=== PATIENT | female | born 1965 | race Caucasian/White ===

== ENCOUNTER 2017-04-11 02:59 | Emergency (ER) | payer OTHER, BC ==
[2017-04-11] MEDS ORDERED: ISOVUE-370 76% 100ML VIAL (Q9967) As Ordered (03:26)
[2017-04-11 03:37] LABS: BASO % 0.4 % (0.0-1.0); EOS # 0.1 10^3/uL (0.0-0.50); EOS % 1.3 % (0.0-3.0); HEMATOCRIT 40.1 % (36.0-47.0); HEMOGLOBIN 14.3 g/dl (12.0-16.0); IMMATURE GRANULOCYTE % 0.5 % (0-3.0); LYMPH # 2.1 10^3/uL (1.5-4.5); MEAN CORPUSCULAR HEMOGLOBIN 29.4 pg (27.0-33.0); MEAN CORPUSCULAR HGB CONC 35.7 g/dl (32.0-36.5); MEAN CORPUSCULAR VOLUME 82.3 fl (80.0-96.0); MONO # 0.6 10^3/uL (0.0-0.8); MONO % 6.6 % (0.0-5.0); NEUTROPHILS # 5.7 10^3/uL (1.8-7.7); NEUTROPHILS % 67.2 % (36.0-66.0); PLATELET COUNT, AUTOMATED 228 10^3/uL (150-450); RED BLOOD COUNT 4.87 10^6/uL (4.00-5.40); RED CELL DISTRIBUTION WIDTH 12.3 % (11.5-14.5); WHITE BLOOD COUNT 8.5 10^3/uL (4.0-10.0)
[2017-04-11] MEDS: NS 500 ML IV (03:46)
[2017-04-11 04:27] LABS: ANION GAP 11 MEQ/L (8-16); BLOOD UREA NITROGEN 13 MG/DL (7-18); CALCIUM LEVEL 8.6 MG/DL (8.5-10.1); CARBON DIOXIDE LEVEL 25 MEQ/L (21-32); CHLORIDE LEVEL 110 MEQ/L (98-107); CK-MB VALUE MASS 1.6 NG/ML (0.0-3.6); CPK CREATINE PHOSPHOKINASE 114 U/L (26-192); CREATININE FOR GFR 1.08 MG/DL (0.55-1.30); ETHYL ALCOHOL (ETHANOL) 0.171 % (0.000-0.010); GLOMERULAR FILTRATION RATE 57.4 (>58); GLUCOSE, FASTING 115 MG/DL (70-100); POTASSIUM SERUM 3.8 MEQ/L (3.5-5.1); SODIUM LEVEL 146 MEQ/L (136-145); TROPONIN I < 0.02 NG/ML (< 0.10)
[2017-04-11] MEDS: ACETAMINOPHEN TAB 650MG DOSE (2X325MG) PO (06:48)
== END 2017-04-11 06:58 | disposition home or self-care (01) ==
LOC: M ED 02:59
DX: S20.311A Abrasion of right front wall of thorax, initial encounter (principal); S20.312A Abrasion of left front wall of thorax, initial encounter; V47.5XXA Car driver injured in collision with fixed or stationary object in traffic accident, initial encounter; Y92.410 Unspecified street and highway as the place of occurrence of the external cause
CPT/HCPCS: Q9967

== ENCOUNTER → 2019-02-15 | Outpatient (POV) | payer BC ==
[~2019-02-15] VITALS: Ht 165.1 cm; Wt 75.9 kg
[~2019-02-15] MED LIST: BUPR150T3 PO; PANT40TA3 PO; XANA0.5T PO
[2019-02-15 11:51] VITALS: BP 142/89
--- NOTE | 2019-02-15 12:02 | GIPN ---
[facility] GI Progress Note GI Progress Note DATE: Feb 15, 2019 Primary physician/ referring physician: Anni Taylor. Reason for consult: Abnormal liver panel and Abdominal pain. HPI: 53-year-old female patient with IBS ( following at [place], had colonoscopy x 2 in past), was recently seen in [facility] for complaints of nausea, vomiting, abdominal pain for a few weeks and noted with abnormal liver panel. Patient reports her symptoms started in November around the [place] [facility] had a trip to [place], when she had heavy alcohol use. Patient reported her symptoms started with persistent epigastric abdominal pain and nausea and recurrent vomiting. Patient had similar bouts since then, around 4 such episodes with last episode being very severe and she came to [facility] ER. Patient reported having multiple episodes of vomiting and upper abdominal pain and thinks she may have had some blood in the vomit. Patient also reported having IBS with constipation predo minant symptoms and she was given linzess, but not using it regularly. Patient denies taking any herbal supplements, OTC medication or recent antibiotic use, no loss of consciousness/ syncope.. Patient had EGD during hospitalization for history of hematemesis - noted some gastritis and duodenitis ( detailed report in [facility]). Follow up 02/15/2019: Today patient is folloing for review of results and symptoms. Patient reports not feeling any abdominal pain at rest but still gets mild to moderate intensity right upper quadrant and epigastric abdominal pain with food intake, and associated with bloating and gassy sensation. Patient also has persistent constipation with bowel movements only on the days when she takes linzess. Patient denies any hard stools. 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 Pertinent negative GI symptoms: Patient denies fever, diarrhea, unintentional weight loss. No history of melena or hematochezia. Prior work up and follow up: -- 210- EGD -- Done on 01/31/2019: noted gastritis and duodenitis, pathology negative for H. pylori. -- US abdomen 01/2019: showed steatosis. -- CT abdomen 01/2019: Hepatic steatosis. Mild wall thickening noted of the gastric antrum may reflect gastritis. Dilated air containing sigmoid colon most consistent with focal ileus. Intra-abdominal adhesions or internal hernia considered less likely. See above comments. Small sliding hiatal hernia. -- MRCP: 01/2019: no evidence of intrahepatic or extrahepatic biliary ductal dilation. There is a focus of mild wall thickening in the gallbladderfundus. No filling defect is seen within the lumen of the gallbladder. Common bile duct is not dilated, measuring 5 mm Review of Systems: GI: as stated above CVS: No chest pain, No palpitations, No leg swelling. RS: No Shortness of breath, No Wheezing, no cough FISCAL AGENT: No dizziness, No motor weakness, No sensory problems Hematology: No bruising, No gum bleeding, Musculoskeletal: No joint pain, ambulating well. Skin: No rash : No hematuria, No burning sensation of the urine ENT: No ear discharge/ pain, No dysphagia. Eyes: No photophobia. Jaundice Home medications: reviewed. Antithrombotic agents - None Medical h/o: As above. Surgical h/o: None on abdomen. Social h/o: Alcohol usually social but had heavy alcohol use during her trip prior to hospitalization, but no further alcohol use since her hospitalization. smoking -- denies , IVDA/ drugs-- denies . Family h/o of GI cancers - None Prior Endoscopies: --- EGD around 20 years ago[place]- normal as per patient. -- EGD in [facility] in 02/01/2019: showed gastritis and duodenitis. --- Colonoscopy x 2 in [place] as per patient- normal. Prior GI evaluations: follows with GI in [place]. Exam: Vitals: reviewed General: Alert and oriented x 3, not in distress HEENT: NO pallor, no icterus. Normal oropharynx, NO cervical lymph nodes. Chest: symmetric with bilateral clear air entry, CVS: S1, S2 heard, normal, no murmurs . Abdomen: non-distended, no surgical scars, soft, mild tenderness in epigastric and right upper quadrant area.,, no palpable masses, normal bowel sounds heard. Rectal exam: Patient refused.. Extremities: no pedal edema, pulses palpable. FISCAL AGENT: no focal motor or sensory deficits. Moves all extremities Skin: no rash. Labs: reviewed.. Imaging: reviewed. Impression: - Abnormal liver panel and abdominal pain with prior symptoms of nausea and vomiting bouts, following travel and alcohol use in past, -- DDx -- likely alcohol liver disease vs Passed CBD stone vs non-specific viral Gastroenteritis. - Constipation predominant IBS with abdominal bloating. Recommendations: - Patient educated about the test results, possible differential diagnoses and All questions answered. - Will obtain repeat liver panel with HSV antibodies, GGT and LDH levels. - Patient is educated to completely avoid hepatotoxic medications and strictly avoid alcohol for now. - Will continue the omeprazole/ pantoprazole for now - to take fitness sales consultant on empty stomach. - Will add colace along with senna -- to be taken daily and if that does not work to take linzess ( dose as per the symptoms). - Will obtain repeat abdominal ultrasound with Doppler and also Bilateral lower extremities doppler due to pedal edema. - Based on the repeat labs and clinical symptoms, might require liver biopsy in future. Discussed about the liver biopsy, its indications, risks and benefits. - Patient is educated to monitor for jaundice, and if any worsening of symptoms to come to ER or call Gi clinic @ [phone]. - Follow up with PCP for routine medical care and other age appropriate health maintenance. Plan of care discussed with patient. Patient verbalized understanding and agreed with the plan. Allergies Coded Allergies: No Known Allergies (Unverified , 09/13/15) Current Medications Medications and Radiology test ordered in [id number] system. JEMMA RICHMOND MD Feb 15, 2019 12:02
== END ==
LOC: M GI 11:47
PROVIDERS: ATTEND Internal Medicine Gastroenterology
DX: R10.13 Epigastric pain (principal); R10.11 Right upper quadrant pain; R94.5 Abnormal results of liver function studies; R11.2 Nausea with vomiting, unspecified; K58.9 Irritable bowel syndrome, unspecified; Z79.899 Other long term (current) drug therapy

== ENCOUNTER → 2019-02-15 | Outpatient (CLI) | payer BC ==
[2019-02-15 13:05] LABS: BASO % 0.5 % (0.0-1.0); EOS # 0.1 10^3/uL (0.0-0.5); EOS % 1.2 % (0.0-3.0); HEMOGLOBIN 14.6 g/dl (12.0-15.5); LYMPH % 27.5 % (24.0-44.0); MEAN CORPUSCULAR HEMOGLOBIN 29.5 pg (27.0-33.0); MEAN CORPUSCULAR VOLUME 86.9 fl (80.0-96.0); MONO # 0.7 10^3/uL (0.0-0.8); NEUTROPHILS # 4.4 10^3/uL (1.5-8.5); NEUTROPHILS % 60.7 % (36.0-66.0); PLATELET COUNT, AUTOMATED 192 10^3/uL (150-450); RED BLOOD COUNT 4.95 10^6/uL (4.00-5.40); WHITE BLOOD COUNT 7.3 10^3/uL (4.0-10.0)
[2019-02-15 13:17] LABS: INR 1.25; PROTHROMBIN TIME 15.4 SECONDS (11.8-14.0)
[2019-02-15 13:18] LABS: PARTIAL THROMBOPLASTIN TIME 32.7 SECONDS (25.0-38.4)
[2019-02-15 13:20] LABS: ALBUMIN 3.4 GM/DL (3.2-5.2); ALT/SGPT 362 U/L (12-78); BILIRUBIN,DIRECT 0.9 MG/DL (0.0-0.2); BILIRUBIN,TOTAL 1.8 MG/DL (0.2-1.0); BLOOD UREA NITROGEN 13 MG/DL (7-18); CPK CREATINE PHOSPHOKINASE 108 U/L (26-192); CREATININE FOR GFR 1.15 MG/DL (0.55-1.30); LDH LACTATE DEHYDROGENASE 295 U/L (84-246)
[2019-02-18 11:04] LABS: HEPATITIS B SURFACE ANTIBODY NEGATIVE (POSITIVE)
== END ==
LOC: M LAB 12:26
PROVIDERS: ATTEND Internal Medicine Gastroenterology
DX: R94.5 Abnormal results of liver function studies (principal); R10.13 Epigastric pain

== ENCOUNTER → 2019-03-03 | Outpatient (CLI) | payer BC ==
--- NOTE | 2019-03-04 03:41 | REP ---
Clinical: Abnormal liver function tests. Technique: Real time oh scale and color Doppler evaluation using curved array transducer. Findings: Liver demonstrates mildly increased echogenicity suggesting fatty infiltration without focal hepatic lesion identified. The pancreas is incompletely evaluated due to interposed bowel gas but visualized portions appear normal. Spleen is unremarkable. The gallbladder demonstrates small 3.6 mm posterior wall polyp without gallstones, wall thickening, or pericholecystic fluid. No biliary ductal dilatation is appreciated and the common bile duct measures 4.5 mm diameter. The bilateral kidneys are normal in reniform shape and echogenicity without hydronephrosis. Right kidney measures 10.4 x 3.9 x 5.3 cm. Left kidney measures 10.0 x 4.9 x 6.4 cm. Abdominal aorta is normal and measures 2.6 cm maximal diameter. No ascites. Doppler interrogation demonstrates normal wave patterns, flow direction, and velocities to the portal and hepatic veins. Main portal vein: 32 cm/sec Intrahepatic portal veins: 13 - 17 cm/sec Splenic vein at the hilum: 18 cm/sec Impression: 1. Mild hepatic steatosis without focal hepatic lesion. 2. Small gallbladder polyp. Electronically Signed by Florentino Barry MD 03/04/2019 03:32 A
== END ==
LOC: M RAD 07:34
PROVIDERS: ATTEND Internal Medicine Gastroenterology
DX: R94.5 Abnormal results of liver function studies (principal); R10.13 Epigastric pain; R10.11 Right upper quadrant pain; K76.0 Fatty (change of) liver, not elsewhere classified; K82.4 Cholesterolosis of gallbladder

== ENCOUNTER → 2019-04-26 | Outpatient (REF) | payer BC ==
[2019-04-26 16:00] LABS: BASO % 0.4 % (0.0-1.0); EOS # 0.1 10^3/uL (0.0-0.5); EOS % 0.9 % (0.0-3.0); HEMATOCRIT 38.6 % (36.0-47.0); HEMOGLOBIN 13.8 g/dl (12.0-15.5); LYMPH # 2.3 10^3/uL (1.5-5.0); LYMPH % 30.8 % (24.0-44.0); MEAN CORPUSCULAR HEMOGLOBIN 30.3 pg (27.0-33.0); MEAN CORPUSCULAR HGB CONC 35.8 g/dl (32.0-36.5); MEAN CORPUSCULAR VOLUME 84.8 fl (80.0-96.0); MONO # 0.7 10^3/uL (0.0-0.8); MONO % 9.3 % (0.0-5.0); NEUTROPHILS # 4.3 10^3/uL (1.5-8.5); NEUTROPHILS % 58.3 % (36.0-66.0); PLATELET COUNT, AUTOMATED 213 10^3/uL (150-450); RED BLOOD COUNT 4.55 10^6/uL (4.00-5.40); WHITE BLOOD COUNT 7.4 10^3/uL (4.0-10.0)
[2019-04-26 16:16] LABS: ALBUMIN 3.3 GM/DL (3.2-5.2); BILIRUBIN,DIRECT 0.3 MG/DL (0.0-0.2); BILIRUBIN,TOTAL 0.8 MG/DL (0.2-1.0)
[2019-04-26 16:21] LABS: INR 1.1; PROTHROMBIN TIME 13.9 SECONDS (11.8-14.0)
[2019-04-26 16:22] LABS: PARTIAL THROMBOPLASTIN TIME 31.2 SECONDS (25.0-38.4)
== END ==
LOC: M LABDRWAD 15:15
PROVIDERS: ATTEND Internal Medicine Gastroenterology
DX: R94.5 Abnormal results of liver function studies (principal)

== ENCOUNTER → 2019-05-30 | Outpatient (CLI) | payer BC ==
--- NOTE | 2019-05-30 11:08 | REP ---
REASON FOR EXAM: Epigastric pain. There are no priors for comparison. After the intravenous administration of 6.6 millicuries of technetium 99m Choletec hepatobiliary imaging was performed with gallbladder ejection fraction calculation. There is symmetric distribution of the radiotracer throughout the hepatocytes. The gallbladder is promptly visualized at 10 minutes. The small bowel is promptly visualized at 30 minutes. The gallbladder ejection fraction calculation is 97%. IMPRESSION: Normal exam. Electronically Signed by Royce Lomas DO 05/30/2019 11:49 A
== END ==
LOC: M RAD 07:29
PROVIDERS: ATTEND Internal Medicine Gastroenterology
DX: R10.13 Epigastric pain (principal)
CPT/HCPCS: 78227; A9537

== ENCOUNTER → 2019-06-06 | Outpatient (CLI) | payer BC ==
[~2019-06-06] MED LIST changes: +E-Z-GAS II EFFERVESCENT PACKET (SODIUM BICARB./CITRIC ACID/SIMETHICONE) As Ordered ONE; +E-Z-HD 98% w/w 340GM SUSP BTL As Ordered ONE; +E-Z-PAQUE 96% w/w SUSP 176GM BTL As Ordered ONE
--- NOTE | 2019-06-06 19:53 | REP ---
UPPER GI AIR CONTRAST AND SMALL BOWEL FOLLOW THROUGH The procedure was performed under the direct supervision of Dr. Rios. The images were reviewed with Dr. Rios The enamel pulverizer film shows no organomegaly or pathological masses. The intestinal gas pattern is non-specific. Liquid barium and gas producing crystals were given in the erect position as well as liquid barium in the prone oblique position in order to perform a double contrast upper GI examination. Additionally liquid barium was given at the end of the examination in order to perform a small bowel follow through. The oral and pharyngeal stages of deglutition are unremarkable. Esophageal transport is prompt and efficient and there is no esophagitis, stricture, mucosal ring or hiatal hernia. Gastroesophageal reflux is not demonstrated on this examination. The stomach nelson are normally outlined . The rugal folds are smooth and regular. There is no gastritis neoplasm or ulcer disease. In the duodenum there are thickened folds which may represent duodenitis. There is no jeaneth ulcer identified. The visualized portion of the proximal small bowel appears normal in course and caliber. The barium column was followed through the small bowel to the level of the terminal ileum. Small bowel transit time is approximately 90 minutes in . During fluoroscopy gentle palpation shows all loops are freely movable and pliable. There are no fixed or angulated loops. The small bowel mucosal pattern is normal in course and caliber. There is no transition to suggest a partial small-bowel obstruction. Spot filming of the terminal ileum shows it to be unremarkable. Impression: In the duodenum there are thickened folds which may represent duodenitis. There are is no jeaneth ulcer identified. Otherwise, unremarkable double contrast upper GI and small bowel follow through examination. 3.3 minutes of fluoro time was utilized for this procedure. Electronically Signed by BECKI Dunbar 06/06/2019 03:40 P Electronically Signed by Benson Rios MD 06/06/2019 07:44 P
== END ==
LOC: M RAD 08:09
PROVIDERS: ATTEND Internal Medicine Gastroenterology
DX: R10.13 Epigastric pain (principal)

== ENCOUNTER → 2019-06-14 | Outpatient (CLI) | payer BC ==
[~2019-06-14] MED LIST changes: -E-Z-GAS II EFFERVESCENT PACKET (SODIUM BICARB./CITRIC ACID/SIMETHICONE) As Ordered ONE; -E-Z-HD 98% w/w 340GM SUSP BTL As Ordered ONE; -E-Z-PAQUE 96% w/w SUSP 176GM BTL As Ordered ONE
--- NOTE | 2019-06-15 04:56 | REP ---
Low: Chronic venous hypertension. Technique: Real time oh scale and color Doppler evaluation using linear high frequency transducer with reflux evaluation. Findings: Bilateral lower extremities demonstrate normal compressibility, flow, and wave patterns in response to respiration and augmentation without evidence for deep venous thrombosis. Reflux evaluation demonstrates normal findings without evidence for reflux through the deep or superficial venous systems. Impression: Normal examination. No evidence for deep venous thrombosis or reflux disease. Electronically Signed by Florentino Barry MD 06/15/2019 04:48 A
--- NOTE | 2019-06-15 05:04 | REP ---
Clinical: Bilateral lower extremity pain and swelling along with suggestions for hypertension and venous insufficiency. Technique: Real time rios scale and color Doppler evaluation of the bilateral lower extremity arterial vasculature using linear high frequency transducer. Findings: Rios scale and color images demonstrate minimal age-related noncalcified intimal thickening/atheromatous changes without stenosis or occlusion. Doppler interrogation demonstrates normal triphasic arterial wave forms and velocities bilaterally. Peak systolic velocities (cm/sec) RIGHT LEFT ENRIQUETA 1.1 1.1 Common femoral artery 132.3 94.3 Profunda femoris 78.3 57.8 SFA (proximal) 85.3 75.8 SFA (mid) 74.1 94.5 SFA (distal) 73.5 91.9 Popliteal artery 47.5 43.7 [place] (prox.) 26.5 20.6 Tibioperoneal trunk 42.9 62.1 MELT HOUSE DRAG OPERATOR (prox.) 63.7 39.3 MELT HOUSE DRAG OPERATOR (distal) 66.3 43.2 [place] (distal) 33.3 51.1 Impression: Relatively age-appropriate examination. No evidence for stenosis or occlusion. Electronically Signed by Florentino Barry MD 06/15/2019 04:56 A
== END ==
LOC: M RAD 09:05
PROVIDERS: ATTEND Internal Medicine Gastroenterology
DX: I87.303 Chronic venous hypertension (idiopathic) without complications of bilateral lower extremity (principal)

== ENCOUNTER → 2019-12-06 | Outpatient (REF) | payer BC ==
[~2019-12-06] MED LIST changes: +PANT40TA29 PO; -PANT40TA3 PO
[2019-12-06 17:03] LABS: LIPASE 170 U/L (73-393)
[2019-12-06 17:35] LABS: H PYLORI QUALITATIVE IgG NEGATIVE (NEGATIVE)
== END ==
LOC: M LAB REF 16:13
PROVIDERS: ATTEND Nurse Practitioner Adult Health
DX: R10.9 Unspecified abdominal pain (principal)

== ENCOUNTER → 2020-02-29 | Outpatient (REF) | payer BC ==
[2020-03-02 16:08] LABS: C1 ESTER INHIB. NON FUNCTIONAL 31 mg/dL (21-39); C1 ESTERASE INHIB. FUNCTIONAL > 100 (.)
== END ==
LOC: M LABDRWAD 12:44
PROVIDERS: ATTEND Internal Medicine Gastroenterology
DX: R10.13 Epigastric pain (principal)

== ENCOUNTER → 2020-04-24 | Outpatient (REF) | payer BC ==
[~2020-04-24] MED LIST changes: +BUPR150T12 PO; -BUPR150T3 PO
[2020-04-24 18:11] LABS: PHOSPHORUS LEVEL 3.9 MG/DL (2.5-4.9)
[2020-04-24 18:19] LABS: TOTAL 25(OH) VITAMIN D 17.5 NG/ML (30.0-100.0)
== END ==
LOC: M SFHCRHEU 15:06
PROVIDERS: ATTEND Internal Medicine
DX: M79.10 Myalgia, unspecified site (principal)

== ENCOUNTER → 2020-05-08 | Outpatient (CLI) | payer BC ==
--- NOTE | 2020-05-09 11:48 | ECHO ---
DATE OF PROCEDURE: 05/08/2020 Age: 54 Gender: Female Height: 165 cm Weight: 86 kg REFERRING PHYSICIAN: Saundra Loomis MD. INDICATION: Lower extremity edema. MEASUREMENTS: IVS 0.8 cm LV 4.7 cm LVPW 0.9 cm LA 3.0 cm Aorta 2.4 cm RV 2.5 cm IVC 1.8 cm Mitral E wave velocity 87 A wave 45 E prime septal 12.4 E prime lateral 10.0 FINDINGS: This study is of very limited technical quality with poor visualization. Patient has breast implants that limited parasternal and apical views. The best quality were subcostal views. Patient is in sinus rhythm. Left ventricle is normal size. Overall probably normal LV systolic function based on limited views. I do not appreciate any definite segmental wall motion abnormalities. Limited views of the right ventricle also appears normal. Aortic valve is appearing grossly normal. Mitral and tricuspid valves were very poorly visualized. Pulmonic valve was not seen. No pericardial effusion is noted. Inferior vena cava is of normal size and appropriately collapses with inspiration suggestive of normal central venous pressure. Aortic root and aortic arch appear normal. Abdominal aorta was not well seen. Doppler interrogation reveals no significant aortic stenosis or insufficiency. There was no visualized mitral stenosis or insufficiency and tricuspid stenosis or insufficiency, but the images were of poor quality. Mitral inflow pattern and tissue Doppler imaging of mitral annulus revealed normal diastolic function. CONCLUSIONS: 1. Study is of rather poor technical quality with limited visualization. Underlying sinus rhythm. 2. Normal LV size with likely normal LV systolic and diastolic function. 3. No gross valvular disease but based on very limited views. 4. Likely normal central venous pressure. COMMENT: It seems less likely that peripheral edema would be of cardiac etiology based on this limited echocardiogram. [facility]
--- NOTE | 2020-05-09 13:31 | SLEEPHOME ---
DATE: 05/08/2020 ORDERED BY: Dr. Saundra Loomis Diagnostic home sleep testing was performed due to concern for the obstructive sleep apnea syndrome in this patient with a history of fatigue. For testing, a nocturnal T3 respiratory monitoring device was used. Continuous record was made of pulse, oxygen saturation, air flow, chest and abdominal strain, and body position. There was 9 hours and 59 minutes of data reviewed. There was 8 hours and 20 minutes marked as time in bed. During the interval marked time in bed, there were only 24 respiratory events identified of 10 seconds in duration or greater. The events were obstructive and seen in the supine posture. Baseline pulse rate 69. Pulse rate ranged 57-107. Baseline saturation 95%. Saturations fell to 90%. Testing was performed in both the supine and nonsupine positions. IMPRESSION: Normal diagnostic home sleep testing with mild respiratory patterning in the supine position. COMMENT: Typical features generally seen in patients with obstructive sleep apnea syndrome were not identified during this testing.
== END ==
LOC: M CARPUL 09:41
PROVIDERS: ATTEND Internal Medicine
DX: M79.89 Other specified soft tissue disorders (principal); R53.83 Other fatigue
CPT/HCPCS: 93306; G0399

== ENCOUNTER → 2020-05-18 | Outpatient (CLI) | payer BC ==
--- NOTE | 2020-05-18 13:20 | REP ---
INDICATION: JOINT PAIN. COMPARISON: Comparison right hand radiographs are from April 11, 2017.. TECHNIQUE: Bilateral hand series: 8 views, 4 on each side. FINDINGS: Four views of the each hand demonstrate overall normal mineralization. Joint spaces are preserved. No erosive changes seen. There are 2 tiny punctate periarticular calcifications at the DIP joint of the index finger on the left. There is similar periarticular calcification at the ulnar aspect of the DIP joint of the index finger on the right as well. Mild DIP joint spurring is seen of the right index finger. No other abnormality.. . IMPRESSION: Mild osteoarthritic changes at the DIP joints. No acute bony abnormality or erosive arthropathy seen.. <Electronically signed by Rod Mcdonough > 05/18/20 [id number]
--- NOTE | 2020-05-18 13:22 | REP ---
INDICATION: JOINT PAIN. COMPARISON: None. TECHNIQUE: Bilateral foot series: 8 views. FINDINGS: Four views of the each foot demonstrate overall normal mineralization. There is plantar calcaneal spurring bilaterally and Achilles calcaneal spurring is noted on the left. Os perineum are seen bilaterally. There is a small os naviculare on each side as well. Minimal 1st MTP joint spurring is present bilaterally. No erosive changes are seen.. No fracture or subluxation is seen. No opaque foreign body noted. 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 Heel spurs bilaterally. No acute bony abnormality. <Electronically signed by Rod Mcdonough > 05/18/20 [id number]
--- NOTE | 2020-05-18 13:56 | REP ---
INDICATION: JOINT PAIN COMPARISON: None. TECHNIQUE: There are four views of each ankle. FINDINGS: Right ankle: There is no fracture or dislocation. Mineralization and joint spaces are normal. There are no calcifications or foreign bodies. There is a calcaneal plantar spur. Left ankle: There is no fracture or dislocation. Mineralization and joint spaces are normal. There are no calcifications or foreign bodies. There is a calcaneal plantar spur. IMPRESSION: Bilateral calcaneal plantar spurs. Otherwise, negative right ankle and negative left ankle. <Electronically signed by Benson Whyte > 05/18/20 [id number]
== END ==
LOC: M ADAMS 10:55
PROVIDERS: ATTEND Internal Medicine
DX: M19.041 Primary osteoarthritis, right hand (principal); M19.042 Primary osteoarthritis, left hand; M25.50 Pain in unspecified joint; M19.071 Primary osteoarthritis, right ankle and foot; M19.072 Primary osteoarthritis, left ankle and foot; M77.31 Calcaneal spur, right foot; M77.32 Calcaneal spur, left foot

== ENCOUNTER → 2021-02-27 | Outpatient (CLI) | payer BC ==
[~2021-02-27] MED LIST changes: +PROHANCE 279.3MG/ML 15ML VIAL As Ordered ONE; +PROHANCE 279.3MG/ML 5ML VIAL As Ordered ONE
== END ==
LOC: M RAD 14:36
PROVIDERS: ATTEND Nurse Practitioner Adult Health
DX: G43.909 Migraine, unspecified, not intractable, without status migrainosus (principal); R90.82 White matter disease, unspecified
CPT/HCPCS: 70553; A9576

== ENCOUNTER → 2021-07-04 | Outpatient (CLI) | payer BC ==
[~2021-07-04] MED LIST changes: -PROHANCE 279.3MG/ML 15ML VIAL As Ordered ONE; -PROHANCE 279.3MG/ML 5ML VIAL As Ordered ONE
[2021-07-04 16:24] LABS: BASO % 0.5 % (0.0-1.0); EOS # 0.2 10^3/uL (0.0-0.5); EOS % 3.8 % (0.0-3.0); HEMATOCRIT 37.4 % (36.0-47.0); LYMPH % 33.1 % (24.0-44.0); MEAN CORPUSCULAR HEMOGLOBIN 29.7 pg (27.0-33.0); MEAN CORPUSCULAR HGB CONC 34.8 g/dl (32.0-36.5); MEAN CORPUSCULAR VOLUME 85.6 fl (80.0-96.0); MONO # 0.6 10^3/uL (0.0-0.8); MONO % 10.3 % (2.0-8.0); NEUTROPHILS # 3.2 10^3/uL (1.5-8.5); PLATELET COUNT, AUTOMATED 153 10^3/uL (150-450); RED BLOOD COUNT 4.37 10^6/uL (4.00-5.40); WHITE BLOOD COUNT 6.1 10^3/uL (4.0-10.0)
[2021-07-04 17:04] LABS: ALBUMIN 3.5 GM/DL (3.2-5.2); BILIRUBIN,TOTAL 0.3 MG/DL (0.2-1.0); CALCIUM LEVEL 8.9 MG/DL (8.5-10.1); CREATININE FOR GFR 1.27 MG/DL (0.55-1.30); GLOMERULAR FILTRATION RATE 46.9 (>51); TOTAL PROTEIN 6.4 GM/DL (6.4-8.2)
[2021-07-08 16:10] LABS: ANGIOTENSIN 1 CONVERTING ENZYM 65 U/L (14-82)
== END ==
LOC: M ADAMS 15:22
PROVIDERS: ATTEND Psychiatry & Neurology Neurology
DX: R51.9 Headache, unspecified (principal)

== ENCOUNTER → 2022-02-05 | Outpatient (REF) | payer BC | LOC: M LAB REF 13:08 | PROVIDERS: ATTEND Nurse Practitioner Adult Health | DX: K21.9 Gastro-esophageal reflux disease without esophagitis (principal) ==

== ENCOUNTER → 2022-08-06 | Outpatient (REF) | payer BC ==
[2022-08-06 12:42] LABS: BASO % 0.6 % (0.0-1.0); EOS % 2.3 % (0.0-3.0); HEMATOCRIT 41.9 % (36.0-47.0); HEMOGLOBIN 14.2 g/dl (12.0-15.5); LYMPH % 26.7 % (24.0-44.0); MEAN CORPUSCULAR HEMOGLOBIN 28.8 pg (27.0-33.0); MEAN CORPUSCULAR HGB CONC 33.9 g/dl (32.0-36.5); MONO % 7.3 % (2.0-8.0); NEUTROPHILS % 62.7 % (36.0-66.0); PLATELET COUNT, AUTOMATED 183 10^3/uL (150-450); RED BLOOD COUNT 4.93 10^6/uL (4.00-5.40); WHITE BLOOD COUNT 5.3 10^3/uL (4.0-10.0)
[2022-08-06 12:43] LABS: EOS # 0.1 10^3/uL (0.0-0.5); LYMPH # 1.4 10^3/uL (1.5-5.0); MONO # 0.4 10^3/uL (0.0-0.8); NEUTROPHILS # 3.3 10^3/uL (1.5-8.5)
[2022-08-06 13:07] LABS: BILIRUBIN,TOTAL 0.7 MG/DL (0.3-1.2); CALCIUM LEVEL 8.7 MG/DL (8.5-10.1); CREATININE FOR GFR 1.05 MG/DL (0.55-1.30); GLOMERULAR FILTRATION RATE 58.1 (>51); POTASSIUM SERUM 4.1 MMOL/L (3.5-5.1); TOTAL PROTEIN 6.4 G/DL (5.7-8.2)
[2022-08-06 13:10] LABS: TOTAL 25(OH) VITAMIN D 19.1 NG/ML (20.0-100.0)
== END ==
LOC: M LAB REF 12:07
PROVIDERS: ATTEND Nurse Practitioner Adult Health
DX: G43.909 Migraine, unspecified, not intractable, without status migrainosus (principal); K21.9 Gastro-esophageal reflux disease without esophagitis; F41.9 Anxiety disorder, unspecified; E55.9 Vitamin D deficiency, unspecified; E78.00 Pure hypercholesterolemia, unspecified; R74.8 Abnormal levels of other serum enzymes

== ENCOUNTER → 2023-02-24 | Outpatient (REF) | payer BC ==
[2023-02-24 14:02] LABS: BASO % 0.5 % (0.0-1.0); EOS # 0.1 10^3/uL (0.0-0.5); EOS % 1.5 % (0.0-3.0); HEMATOCRIT 45.5 % (36.0-47.0); HEMOGLOBIN 15.6 g/dl (12.0-15.5); LYMPH # 1.6 10^3/uL (1.5-5.0); LYMPH % 23.9 % (24.0-44.0); MEAN CORPUSCULAR HGB CONC 34.3 g/dl (32.0-36.5); MEAN CORPUSCULAR VOLUME 84.6 fl (80.0-96.0); MONO # 0.5 10^3/uL (0.0-0.8); MONO % 6.8 % (2.0-8.0); NEUTROPHILS # 4.4 10^3/uL (1.5-8.5); NEUTROPHILS % 67.1 % (36.0-66.0); PLATELET COUNT, AUTOMATED 197 10^3/uL (150-450); RED BLOOD COUNT 5.38 10^6/uL (4.00-5.40); WHITE BLOOD COUNT 6.6 10^3/uL (4.0-10.0)
[2023-02-24 14:32] LABS: ALBUMIN 4.1 G/DL (3.2-5.2); BILIRUBIN,TOTAL 0.6 MG/DL (0.3-1.2); CALCIUM LEVEL 9.3 MG/DL (8.5-10.1); CHOLESTEROL RISK RATIO 2.66 (<5); CREATININE FOR GFR 1.02 MG/DL (0.55-1.30); GLOMERULAR FILTRATION RATE 59.9 (>51); HDL CHOLESTEROL 63.4 MG/DL (>40); LDL CHOLESTEROL 81.6 MG/DL (<100); NON-HDL-C 105.6 MG/DL; POTASSIUM SERUM 3.4 MMOL/L (3.5-5.1); TOTAL PROTEIN 6.5 G/DL (5.7-8.2)
== END ==
LOC: M LAB REF 13:25
PROVIDERS: ATTEND Nurse Practitioner Adult Health
DX: E78.00 Pure hypercholesterolemia, unspecified (principal); E55.9 Vitamin D deficiency, unspecified; K21.9 Gastro-esophageal reflux disease without esophagitis; F41.9 Anxiety disorder, unspecified

== ENCOUNTER → 2023-04-06 | Outpatient (CLI) | payer BC | LOC: M WHC 15:01 | PROVIDERS: ATTEND Nurse Practitioner Adult Health | DX: Z12.31 Encounter for screening mammogram for malignant neoplasm of breast (principal); R92.323 Mammographic fibroglandular density, bilateral breasts; Z98.82 Breast implant status ==

== ENCOUNTER → 2024-03-29 | Outpatient (CLI) | payer BC | LOC: M WUC 10:29 | PROVIDERS: ATTEND Nurse Practitioner Adult Health | DX: M53.3 Sacrococcygeal disorders, not elsewhere classified (principal) ==

== ENCOUNTER → 2024-03-29 | Outpatient (REF) | payer BC ==
[2024-03-29 14:36] LABS: ALKALINE PHOSPHATASE 52 U/L (35-104); ALT/SGPT 14 U/L (7.0-40); AST/SGOT 13 U/L (<34); BILIRUBIN,TOTAL 0.4 MG/DL (0.3-1.2); BLOOD UREA NITROGEN 22 MG/DL (9-23); CALCIUM LEVEL 9.2 MG/DL (8.5-10.1); CARBON DIOXIDE LEVEL 27 MMOL/L (20-31); CHLORIDE LEVEL 109 MMOL/L (98-107); CHOLESTEROL LEVEL 206 MG/DL (<200); CHOLESTEROL RISK RATIO 2.47 (<5); CREATININE FOR GFR 0.84 MG/DL (0.55-1.30); GLOMERULAR FILTRATION RATE > 60.0 (>51); GLUCOSE, FASTING 91 MG/DL (60-100); HDL CHOLESTEROL 83.2 MG/DL (>40); LDL CHOLESTEROL 107.2 MG/DL (<100); NON-HDL-C 122.8 MG/DL; POTASSIUM SERUM 4.3 MMOL/L (3.5-5.1); SODIUM LEVEL 144 MMOL/L (136-145); TOTAL PROTEIN 6.7 G/DL (5.7-8.2); TRIGLYCERIDES LEVEL 78 MG/DL (<150)
[2024-03-29 14:37] LABS: BASO % 0.5 % (0.0-1.0); EOS # 0.2 10^3/uL (0.0-0.5); EOS % 2.8 % (0.0-3.0); HEMATOCRIT 43.2 % (36.0-47.0); HEMOGLOBIN 14.6 g/dl (12.0-15.5); LYMPH # 1.8 10^3/uL (1.5-5.0); LYMPH % 31.9 % (24.0-44.0); MEAN CORPUSCULAR HEMOGLOBIN 29.3 pg (27.0-33.0); MEAN CORPUSCULAR HGB CONC 33.8 g/dl (32.0-36.5); MEAN CORPUSCULAR VOLUME 86.6 fl (80.0-96.0); MONO # 0.4 10^3/uL (0.0-0.8); MONO % 7.2 % (2.0-8.0); NEUTROPHILS # 3.3 10^3/uL (1.5-8.5); NEUTROPHILS % 57.4 % (36.0-66.0); PLATELET COUNT, AUTOMATED 200 10^3/uL (150-450); RED BLOOD COUNT 4.99 10^6/uL (4.00-5.40); WHITE BLOOD COUNT 5.7 10^3/uL (4.0-10.0)
[2024-03-29 14:44] LABS: ERYTHROCYTE SEDIMENTATION RATE < 1 mm/hr (0-30)
== END ==
LOC: M LAB REF 13:09
PROVIDERS: ATTEND Nurse Practitioner Adult Health
DX: G43.909 Migraine, unspecified, not intractable, without status migrainosus (principal); E78.00 Pure hypercholesterolemia, unspecified